=== PATIENT | female | born 2005 | race Caucasian/White ===

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

== ENCOUNTER 2024-08-31 15:28 | Emergency (ER) | payer OTHER, SELFPAY ==
[2024-08-31] VITALS (17 sets, daily range): BP systolic 97–133; BP diastolic 57–77; PULSE 55–71; RESP 11–24; TEMP 36.7; O2SAT 96–99; BMI 31.5
--- NOTE | 2024-08-31 15:37 | EKG_ITS ---
[address] [address] Test Date: 2024-08-31 Pat Name: Jania Cai Department: [facility] Room: Gender: Female [employer] Machine Operator: ASTON : 2005 Requested By: Order Number: [id number] Reading MD: James Ayala Measurements Intervals [place] Rate: 66 P: 51 ME: 144 QRS: 58 QRSD: 110 T: 43 QT: 392 QTc: 410 Interpretive Statements Normal sinus rhythm Electronically Signed On 08-31-2024 18:09:10 PDT by James Ayala
[2024-08-31 16:08] LABS: Add Manual Diff / Slide Review NO; Hematocrit 44.9 % (36-46); Hemoglobin 15.0 g/dL (12.0-16.0); Lymphocytes Absolute Auto 2800 /uL (1100-4500); Mean Corpuscular HGB Conc 33.5 % (30-36); Mean Corpuscular Hemoglobin 29.7 PG (26-34); Mean Corpuscular Volume 88.8 fL (80-100); Platelet Count 217 X10^3/uL (150-400)
[2024-08-31 16:26] LABS: Blood Urea Nitrogen 9 mg/dL (7-17); Calcium 9.4 mg/dL (8.4-10.2); Carbon Dioxide 28 mmol/L (22-32); Chloride 103 mmol/L (98-107); Estimated Glomerular Filt Rate > 60 mL/min (>60); Glucose 113 mg/dL (70-99); HEMOLYSIS < 15 (0-50); Potassium 4.3 mmol/L (3.4-5.1); Sodium 138 mmol/L (137-145)
--- NOTE | 2024-08-31 19:35 | DI.CT.S_ITS ---
PROCEDURE: CT HEAD/BRAIN WO CON INDICATIONS: seizure TECHNIQUE: Noncontrast 4.5 mm thick angled axial sections acquired from the foramen magnum to the vertex, with coronal and sagittal reformats. For radiation dose reduction, the following was used: automated exposure control, adjustment of mA and/or kV according to patient size. COMPARISON: None. FINDINGS: Image quality: Diagnostic. CSF spaces: Basal cisterns are patent. No extra-axial fluid collections. Ventricles are normal in size and shape. Brain: No midline shift. No intracranial mass effect or hemorrhage. Ravi- white matter interface is normal. Skull and face: Calvarium and visualized facial bones are intact, without suspicious lesions. Sinuses: Visualized sinuses and mastoids are clear. IMPRESSION: No acute intracranial pathology. Consider follow-up MRI of the brain for further evaluation in the setting of seizure. Approved by: Jasen Patel M.D. on 08/31/2024 at 20:02
[2024-08-31 20:02] LABS: Appearance Urine UA CLEAR; Bilirubin Urine UA NEGATIVE (NEGATIVE); Color Urine UA YELLOW; Glucose Urine UA NEGATIVE (Negative); Ketones Urine UA NEGATIVE (NEGATIVE); Leukocyte Esterase Urine UA NEGATIVE (NEGATIVE); Nitrite Urine UA NEGATIVE (Negative); Occult Blood Urine UA NEGATIVE (Negative); Protein Urine UA NEGATIVE (Negative); Specific Gravity Urine UA <=1.005 (1.000-1.035); Urobilinogen Urine UA 0.2 E.U./dL (0.2)
[2024-08-31 20:06] LABS: UR Morphine/Opiate cutoff 300 Negative (Negative); Ur Specific Gravity Normal (Normal); Urine MDMA Negative (Negative); Urine Methamphetamines Negative (Negative); Urine Tetrahydrocannabinol Positive (Negative); Urine Tricyclic Antidepressant Negative (Negative)
[2024-08-31 20:10] LABS: pH Urine UA 6.5 (4.5-8.0)
[2024-08-31 20:11] LABS: Culture Indicated Urine Cult Not Indicated
[2024-08-31 20:14] LABS: Acetaminophen < 10 ug/mL (10-30); Lactate (Lactic Acid) 1.2 mmol/L (0.7-2.1); Magnesium 1.9 mg/dL (1.6-2.3); Salicylate < 1.0 mg/dL (<20)
[2024-08-31 20:32] LABS: Procalcitonin < 0.030 ng/mL (<0.5)
[2024-08-31 20:46] LABS: Thyroid Stimulating Hormone 3.20 uIU/mL (0.47-4.68)
--- NOTE | 2024-08-31 22:56 | ED.SEIZURE ---
HPI - Seizure General Chief Complaint: Seizure Stated Complaint: had seizure 20 min ago Time Seen by Provider: 08/31/24 18:10 Source: patient Mode of arrival: Ambulatory Limitations: no limitations History of Present Illness HPI Narrative: Pleasant 19-year-old trans female comes to the ER because of a witnessed seizure where they had about 1-1/2 minutes of generalized tonic-clonic activity without tongue biting or loss of continence, his mother who witnessed the event also reports the patient was somewhat out of it and confused for about 10 minutes following the event. The patient reports they have experienced 2 other episodes within the past year of loss of consciousness where they woke up feeling similar to how they did today but these were unwitnessed and they did not seek medical care at that time. They deny any headaches, changes in vision hearing speech or swallowing. They deny any numbness tingling or weakness of any part of the body. Currently, they state they feel completely fine except for some muscular soreness of the bilateral legs Related Data Home Medications ?Medication ?Instructions ?Recorded ?Confirmed loratadine 10 mg tablet (Claritin) 10 mg PO DAILY 12/30/18 11/12/23 testosterone 2 pump topical DAILY 04/04/24 04/04/24 Previous Rx's ?Medication ?Instructions ?Recorded cholecalciferol (vitamin D3) 25 25 mcg PO DAILY insufficient 11/12/23 mcg (1,000 unit) capsule Vitamin D #30 caps clonidine HCl 0.1 mg tablet 0.1 mg PO BID #60 tabs 07/25/24 escitalopram oxalate 20 mg tablet 20 mg PO DAILY generalized anxiety 07/25/24 disorder #30 tabs Allergies Allergy/AdvReac Type Severity Reaction Status Date / Time orange Allergy Intermediate oral Verified 08/31/24 15:36 pruritis chocolate Allergy Mild Vomiting Verified 08/31/24 15:36 Review of Systems Constitutional Constitutional: Denies body ache(s), Denies chills, Denies daytime sleepiness, Denies fatigue, Denies fever(s), Denies frequent falls, Denies headache(s), Denies lethargy, Denies poor appetite and Denies weakness Eyes Eyes: Denies blind spots, Denies blurry vision, Denies change in vision, Denies diplopia, Denies loss of vision, Denies other visual disturbances and Denies eye pain ENT Ears, Nose, Mouth, and Throat: Denies change in voice, Denies dysphagia, Denies vertigo, Denies dizziness, Denies facial pain, Denies headache(s), Denies nasal congestion, Denies neck pain, Denies odynophagia, Denies disequilibrium and Denies tinnitus Cardiovascular Cardiovascular: Denies chest pain, Denies chest pain at rest, Denies chest pain with activity, Denies rapid heart rate, Denies irregular heart rhythm, Denies palpitations, Denies dyspnea, Denies dyspnea on exertion and Denies orthopnea Respiratory Respiratory: Denies cough, Denies dyspnea, Denies dyspnea on exertion and Denies wheezing Gastrointestinal Gastrointestinal: Denies abdominal pain, Denies hematochezia, Denies dysphagia, Denies diarrhea, Denies nausea, Denies odynophagia and Denies vomiting Genitourinary Genitourinary: Denies difficulty voiding and Denies dysuria Musculoskeletal Musculoskeletal: Denies neck pain, Denies numbness and Denies tingling Integumentary/Breasts Skin/Breast: Denies rash Neurologic Neurologic: Denies abnormal speech, Denies confusion, Denies vertigo, Denies dizziness, Denies frequent falls, Denies headache(s), Denies lack of coordination, Denies localized weakness, Denies loss of vision, Denies numbness, Denies other visual disturbances, Denies radicular pain, Reports convulsions, Reports seizure-like activity, Denies sensory deficit, Denies tingling, Denies paresthesias, Denies disequilibrium and Denies weakness Psychiatric Psychiatric: Denies confusion Endocrine Endocrine: Denies fatigue and Denies palpitations Allergic/Immunologic Allergic/Immunologic: Denies wheezing Patient History Medical History (Updated 08/31/24 @ 22:40 by Gregorio Garner MD) Generalized anxiety disorder Tourette disorder 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 Elevated testosterone level in female Migraines Headache Ovarian cyst Facial tic Alejandro-Danlos syndrome, familial joint laxity type Elevated fasting insulin level with normal glucose Amenorrhea Obstructive sleep apnea History of PCOS Anxiety Depression Family History Father Diabetes mellitus Hypertension Mental health problem Mother Mental health problem Hypoglycemia Brother Mental health problem Social History Smoking Status: Current some day smoker Smoking Status: Current some day smoker tobacco type: vaping Exam Initial Vital Signs Initial Vital Signs: Vital Signs Temperature 98.1 F 08/31/24 15:31 Pulse Rate 71 08/31/24 15:31 Respiratory Rate 18 08/31/24 15:31 Blood Pressure 127/59 L 08/31/24 15:31 Pulse Oximetry 98 08/31/24 15:31 Oxygen Delivery Method Room Air 08/31/24 15:31 Const General: comfortable, No acute distress, No in distress, No anxious, No diaphoretic, No ill appearing and No lethargic Limitations: mental status not altered [facility] Head: normal to inspection, normocephalic and atraumatic Ears: hearing grossly normal bilaterally Nose: external nose normal Face and sinus: normal facial exam Mouth: oral mucosae normal Eyes General: Yes appearance normal, both eyes and all related structures Periorbital: periorbital findings normal Pupils: PERRL EOM: EOM intact bilaterally Neck Neck: no meningeal signs, No positive Brudzinski's sign, No positive Kernig's sign and No tender Resp Effort & Inspection: normal respiratory effort Auscultation: clear to auscultation bilaterally Cardio Rate: regular rate Rhythm: regular rhythm Heart Sounds: S1 normal and S2 normal GI Palpation: soft and No tender General: No CVA tenderness Back/Spine/Pelvis Back: No back tenderness Skin General: no rashes or lesions noted Neuro General: patient alert, patient awake, patient oriented x3, gait normal, tone normal, moves all extremities, normal light touch, pain and propioception, no meningeal signs, no focal motor deficits, CN's II-XI intact bilaterally, not confused and not obtunded Cranial Nerves: PERRL Cognition: normal cognition Speech: speech normal Motor: muscle tone normal throughout Sensory Exam: no sensory deficits noted Course Course Course Narrative: Patient seen and examined by myself once they are roomed in the ER. It seems like he did have a true seizure earlier today. The workup for organic causes of seizure was negative except for positive UDS for marijuana. I discussed the case with Dr. Vallejo the neurologist on-call for Yajaira franklin with the intention of transferring the patient there for neuro consult and EEG. However, Dr. Álvarez advised that the patient does not require hospitalization and the remainder of this seizure workup can be done as an outpatient including neuro consult, EEG, brain MRI. I explained this to the patient and they felt comfortable going home. I explained seizure safety precautions as outlined in my discharge paperwork for the patient. The patient was advised to follow up with neuro and his PCP karon. He was given a consult for neuro. Orders Ordered: ED Orders 08/31/24 15:37 EKG-12 Lead Stat 08/31/24 15:45 BMP [Basic Metabolic Panel] Stat CBC Auto Diff [Complete Blood Count AUTO DIFF] Stat 08/31/24 19:35 CT head/brain wo con Stat 08/31/24 19:45 Urinalysis and Microscopic Stat Urine Drug Screen, Rapid Stat 08/31/24 19:51 Acetaminophen Stat Lactate (Lactic Acid) Stat MAG [Magnesium] Stat Procalcitonin Stat Prolactin Stat Salicylate Stat TSH [Thyroid Stimulating Hormone] Stat Discontinued Medications Levetiracetam 2,000 mg/ Sodium (Chloride) 120 mls @ 480 mls/hr IV NOW ONE Stop: 08/31/24 19:34 Last Infusion: 08/31/24 20:49 Dose: Infused Documented By: Admin: 08/31/24 20:00 Dose: 480 mls/hr Documented By: BLANE Vital Signs Vital signs: Vital Signs - 8 hr 08/31/24 15:31 08/31/24 17:17 08/31/24 17:17 Temperature 98.1 F Pulse Rate 71 66 Respiratory Rate 18 Blood Pressure 127/59 L 126/65 Pulse Oximetry 98 99 Oxygen Delivery Method Room Air 08/31/24 17:30 08/31/24 17:30 08/31/24 18:00 Temperature Pulse Rate 66 Respiratory Rate 17 Blood Pressure 122/66 128/57 L Pulse Oximetry 97 Oxygen Delivery Method 08/31/24 18:00 08/31/24 18:30 08/31/24 18:30 Temperature Pulse Rate 63 59 L Respiratory Rate 17 Blood Pressure 133/57 L Pulse Oximetry 99 99 Oxygen Delivery Method 08/31/24 19:00 08/31/24 19:01 08/31/24 19:01 Temperature Pulse Rate 59 L 62 Respiratory Rate 17 11 L Blood Pressure 111/57 L Pulse Oximetry 97 98 Oxygen Delivery Method Room Air 08/31/24 19:30 08/31/24 19:30 08/31/24 19:45 Temperature Pulse Rate 61 Respiratory Rate 18 Blood Pressure 112/77 110/74 Pulse Oximetry 98 Oxygen Delivery Method 08/31/24 19:45 08/31/24 20:00 08/31/24 20:00 Temperature Pulse Rate 63 62 Respiratory Rate 20 18 Blood Pressure 121/59 L Pulse Oximetry 98 97 Oxygen Delivery Method 08/31/24 20:30 08/31/24 20:30 08/31/24 21:00 Temperature Pulse Rate 65 63 Respiratory Rate 24 14 Blood Pressure 104/57 L Pulse Oximetry 98 98 Oxygen Delivery Method 08/31/24 21:03 08/31/24 21:03 08/31/24 21:30 Temperature Pulse Rate 59 L 55 L Respiratory Rate 21 22 Blood Pressure 97/61 Pulse Oximetry 98 96 Oxygen Delivery Method 08/31/24 22:00 08/31/24 22:30 08/31/24 22:40 Temperature Pulse Rate 65 69 Respiratory Rate 20 24 Blood Pressure 121/69 Pulse Oximetry 97 97 Oxygen Delivery Method 08/31/24 22:40 Temperature Pulse Rate 66 Respiratory Rate 20 Blood Pressure Pulse Oximetry 97 Oxygen Delivery Method Room Air MDM - Seizure Differential Diagnosis Differential diagnosis: Likely intractable seizure disorder, febrile convulsion, focal seizure, generalized seizure, new onset seizure and epileptic seizure Lab Data 08/31/24 15:45 08/31/24 15:45 Labs: Lab Results 08/31/24 08/31/24 08/31/24 Range/Units 15:45 19:45 19:45 WBC 11.3 H (4.5-11.0) X10^3/uL RBC 5.05 (4.0-5.2) X10^6/uL Hgb 15.0 (12.0-16.0) g/dL Hct 44.9 (36-46) % MCV 88.8 (80-100) fL MCH 29.7 (26-34) PG MCHC 33.5 (30-36) % RDW 13.5 (11.6-14.8) % Plt Count 217 (150-400) X10^3/uL Neut % (Auto) 65.0 (50-75) % Lymph % (Auto) 24.6 L (25-40) % [place] % (Auto) 6.2 (3-14) % Eos % (Auto) 3.7 (2-4) % Baso % (Auto) 0.5 (0-2) % Neut # (Auto) 7300 H (4508-4691) /uL Lymph # (Auto) 2800 (9051-1487) /uL [place] # (Auto) 700 (0-900) /uL Eos # (Auto) 400 (0-450) /uL Baso # (Auto) 100 (0-100) /uL Sodium 138 (137-145) mmol/L Potassium 4.3 (3.4-5.1) mmol/L Chloride 103 (98-107) mmol/L Carbon Dioxide 28 (22-32) mmol/L BUN 9 (7-17) mg/dL Creatinine 0.91 (0.52-1.04) mg/dL Estimated GFR > 60 (>60) mL/min BUN/Creatinine Ratio 9.9 (6-22) Glucose 113 H (70-99) mg/dL Lactate (0.7-2.1) mmol/L Calcium 9.4 (8.4-10.2) mg/dL Magnesium (1.6-2.3) mg/dL Procalcitonin (<0.5) ng/mL TSH (0.47-4.68) uIU/mL Prolactin (3.0-18.6) ng/mL Urine Color Yellow Urine Appearance Clear Urine pH 6.5 Normal (4.5-8.0) Ur Specific [place] <=1.005 (1.000-1.035) Urine Protein Negative (Negative) Urine Glucose (UA) Negative (Negative) g/dL Urine Ketones Negative (NEGATIVE) Urine Occult Blood Negative (Negative) Urine Nitrate Negative (Negative) Urine Bilirubin Negative (NEGATIVE) Urine Urobilinogen 0.2 (0.2) E.U./dL Ur Leukocyte Esterase Negative (NEGATIVE) Urine RBC None seen (0-5/HPF) Urine WBC None seen (0-5/HPF) Ur Squamous Epith Cells None seen (0-5/HPF) Amorphous Sediment 1+ Urine Bacteria None seen (None) Ur Culture Indicated? Cult not indicated Vol Urine Centrifuged 10ml (spun) Salicylates (<20) mg/dL U Opiates 300ng/mL cut Negative (Negative) Ur Oxycodone Screen Negative (Negative) Urine Methadone Screen Negative (Negative) Acetaminophen (10-30) ug/mL Ur Barbiturates Screen Negative (Negative) U Tricyclic Antidepress Negative (Negative) Ur Phencyclidine Scrn Negative (Negative) Ur Amphetamines Screen Negative (Negative) U Methamphetamines Scrn Negative (Negative) Ur MDMA Scrn (Ecstasy) Negative (Negative) U Benzodiazepines Scrn Negative (Negative) Urine Cocaine Screen Negative (Negative) U Marijuana (THC) Screen Positive H (Negative) Urine Specific [place] Normal (Normal) Ur Creatinine Normal (Normal) 08/31/24 Range/Units 19:51 WBC (4.5-11.0) X10^3/uL RBC (4.0-5.2) X10^6/uL Hgb (12.0-16.0) g/dL Hct (36-46) % MCV (80-100) fL MCH (26-34) PG MCHC (30-36) % RDW (11.6-14.8) % Plt Count (150-400) X10^3/uL Neut % (Auto) (50-75) % Lymph % (Auto) (25-40) % [place] % (Auto) (3-14) % Eos % (Auto) (2-4) % Baso % (Auto) (0-2) % Neut # (Auto) (8546-7046) /uL Lymph # (Auto) (8107-9048) /uL [place] # (Auto) (0-900) /uL Eos # (Auto) (0-450) /uL Baso # (Auto) (0-100) /uL Sodium (137-145) mmol/L Potassium (3.4-5.1) mmol/L Chloride (98-107) mmol/L Carbon Dioxide (22-32) mmol/L BUN (7-17) mg/dL Creatinine (0.52-1.04) mg/dL Estimated GFR (>60) mL/min BUN/Creatinine Ratio (6-22) Glucose (70-99) mg/dL Lactate 1.2 (0.7-2.1) mmol/L Calcium (8.4-10.2) mg/dL Magnesium 1.9 (1.6-2.3) mg/dL Procalcitonin < 0.030 (<0.5) ng/mL TSH 3.20 (0.47-4.68) uIU/mL Prolactin 27.6 H (3.0-18.6) ng/mL Urine Color Urine Appearance Urine pH (4.5-8.0) Ur Specific [place] (1.000-1.035) Urine Protein (Negative) Urine Glucose (UA) (Negative) g/dL Urine Ketones (NEGATIVE) Urine Occult Blood (Negative) Urine Nitrate (Negative) Urine Bilirubin (NEGATIVE) Urine Urobilinogen (0.2) E.U./dL Ur Leukocyte Esterase (NEGATIVE) Urine RBC (0-5/HPF) Urine WBC (0-5/HPF) Ur Squamous Epith Cells (0-5/HPF) Amorphous Sediment Urine Bacteria (None) Ur Culture Indicated? Vol Urine Centrifuged Salicylates < 1.0 (<20) mg/dL U Opiates 300ng/mL cut (Negative) Ur Oxycodone Screen (Negative) Urine Methadone Screen (Negative) Acetaminophen < 10 (10-30) ug/mL Ur Barbiturates Screen (Negative) U Tricyclic Antidepress (Negative) Ur Phencyclidine Scrn (Negative) Ur Amphetamines Screen (Negative) U Methamphetamines Scrn (Negative) Ur MDMA Scrn (Ecstasy) (Negative) U Benzodiazepines Scrn (Negative) Urine Cocaine Screen (Negative) U Marijuana (THC) Screen (Negative) Urine Specific [place] (Normal) Ur Creatinine (Normal) ECG Data Interpretation: Normal sinus rhythm rate 66. Normal EKG. Discharge Plan Departure Patient Disposition: Home Clinical Impression: Seizure Instructions: DI for Seizure Disorder -- Adult Activity Restrictions/Additional Instructions: If you have another seizure then please call 911 or return to the ER right away for further evaluation. From this point on you should not drive until cleared to do so by a neurologist, minimally 6 months from her last seizure. You need to see a neurologist as soon as possible and he will likely need an MRI of your brain and EEG which is an electrical scan of the brain. They had neurologist should arrange these things for you. Otherwise, please follow up with your PCP as soon as possible as well. Prescriptions: No Action loratadine [Claritin] 10 mg tablet 10 mg PO DAILY escitalopram oxalate 20 mg tablet 20 mg PO DAILY Qty: 30 2RF clonidine HCl 0.1 mg tablet 0.1 mg PO BID Qty: 60 2RF testosterone 20.25 mg/1.25 gram (1.62 %) gel in metered-dose pump 2 pump topical DAILY Rx Instructions: apply 1 pump amount over max area of EACH upper arm and shoulder cholecalciferol (vitamin D3) 25 mcg (1,000 unit) capsule 25 mcg PO DAILY Qty: 30 5RF Referrals: Kristin Alvares MD [Non-Staff, Neurology] - As soon as possible Mohit Trinidad DO [Primary Care Provider, Family Practice] - As soon as possible Stand Alone Forms: Patient Portal/API
== END 2024-08-31 23:01 | disposition home or self-care (01) ==
PROVIDERS: Emergency Medicine; Emergency Provider Emergency Medicine; PCP Family Medicine
DX: G40.909 Epilepsy, unspecified, not intractable, without status epilepticus (principal)
CPT/HCPCS: 70450; 80048; 80305; 80329; 81001; 83605; 83735; 84145; 84146; 84443; 85025; 93005; 96365; 99283; 99284; G0480; J1953

== ENCOUNTER → 2025-01-01 14:37 | Outpatient (CLI) | payer OTHER, SELFPAY ==
[2025-01-01 15:54] LABS: Hemoglobin A1C% w Est Avg Glu 5.3 % (4.0-6.0)
[2025-01-01 16:21] LABS: Cholesterol 227 mg/dL (140-199); HDL Cholesterol 44 mg/dL (40-60); Triglycerides 95 mg/dL (35-150)
[2025-01-01 16:38] LABS: Vitamin D 25 Hydroxy (D3) 19.4 ng/mL (30.0-100.0)
== END ==
PROVIDERS: PCP Family Medicine; Referring Provider Student in an Organized Health Care Education/Training Program; Visit Provider Student in an Organized Health Care Education/Training Program
DX: E55.9 Vitamin D deficiency, unspecified (principal); Z51.81 Encounter for therapeutic drug level monitoring
CPT/HCPCS: 36415; 80061; 82306; 83036